=== PATIENT | male | born 1960 | race Caucasian/White ===

== ENCOUNTER 2020-09-02 20:54 | Outpatient (REF) | payer MEDICARE, SELFPAY ==
[2020-09-02 22:04] LABS: HCT 40.6 % (40.0-50.0); HGB 13.1 g/dL (13.5-17.5); MCH 33.5 pg (27.0-33.0); MCHC 32.3 % (32.0-36.0); MCV 103.8 fL (80-95); Platelet Count 221 10^3/uL (130-400); RBC 3.91 10^6/uL (4.36-5.78); RDW 13.2 % (11.8-14.1); RDW-SD 50.5 fL; WBC 4.82 10^3/uL (4.4-10.8)
[2020-09-02 22:22] LABS: ALT 27 U/L (16-63); AST 15 U/L (15-37); Albumin 3.7 g/dL (3.4-5.0); Alkaline Phosphatase 65 U/L (46-116); BUN 11 mg/dL (7-18); Bilirubin, Total 0.5 mg/dL (0.2-1.0); CREATININE 1.03 mg/dL (0.70-1.30); Calcium 9.2 mg/dL (8.5-10.1); Chloride 105 mmol/L (98-107); Glucose 88 mg/dL (74-106); Potassium 4.2 mmol/L (3.5-5.1); Sodium 139 mmol/L (136-145); Total Protein 6.4 g/dL (6.4-8.2)
[2020-09-03 23:32] LABS: Folate 13.8 ng/mL (See Note); Vitamin B12 284 pg/mL (211-911)
== END 2020-09-02 21:14 ==
LOC: NCHCN 20:54
PROVIDERS: PCP Family Medicine; Visit Provider Nurse Practitioner Community Health
DX: Z79.899 Other long term (current) drug therapy (principal); R71.8 Other abnormality of red blood cells
CPT/HCPCS: 80053; 85027; 82607; 82746; 84443

== ENCOUNTER 2020-09-18 10:54 | Outpatient (REF) | payer MEDICARE, SELFPAY ==
[2020-09-18 21:08] LABS: Abs Immature Grans 0.01 10^3/uL (0.0-0.06); Absolute Basophil Count 0.03 10^3/uL (0.0-0.2); Absolute Eosinophil Count 0.21 10^3/uL (0.0-0.7); Absolute Lymphocyte Count 1.46 10^3/uL (1.2-3.4); Absolute Monocyte Count 0.87 10^3/uL (0.1-0.8); Absolute Neutrophil Count 3.18 10^3/uL (1.2-6.7); Basophils % 0.5; Eosinophils % 3.6; HCT 42.3 % (40.0-50.0); HGB 13.5 g/dL (13.5-17.5); Immature Grans % 0.2; Lymphocytes % 25.3; MCH 33.5 pg (27.0-33.0); MCHC 31.9 % (32.0-36.0); MPV 10.2 fL (8.0-11.0); Monocytes % 15.1; Neutrophils % 55.3; Nucleated RBC 0 %; Platelet Count 252 10^3/uL (130-400); RBC 4.03 10^6/uL (4.36-5.78); RDW 12.6 % (11.8-14.1); WBC 5.76 10^3/uL (4.4-10.8)
== END 2020-09-18 11:14 ==
LOC: NCHCN 10:54
PROVIDERS: PCP Family Medicine; Visit Provider Nurse Practitioner Community Health
DX: R71.8 Other abnormality of red blood cells (principal)
CPT/HCPCS: 85025

== ENCOUNTER 2020-09-30 16:08 | Outpatient (REF) | payer MEDICARE, SELFPAY ==
[2020-09-30 22:06] LABS: HCT 43.6 % (40.0-50.0); HGB 13.8 g/dL (13.5-17.5); MCH 32.9 pg (27.0-33.0); MCHC 31.7 % (32.0-36.0); MCV 104.1 fL (80-95); MPV 10.2 fL (8.0-11.0); Platelet Count 286 10^3/uL (130-400); RBC 4.19 10^6/uL (4.36-5.78); RDW 12.3 % (11.8-14.1); RDW-SD 47.3 fL; WBC 6.64 10^3/uL (4.4-10.8)
== END 2020-09-30 16:28 ==
LOC: NCHCN 16:08
PROVIDERS: PCP Family Medicine; Visit Provider Nurse Practitioner Community Health
DX: R23.3 Spontaneous ecchymoses (principal)
CPT/HCPCS: 85027

== ENCOUNTER 2021-03-29 16:32 | Outpatient (REF) | payer OTHER, SELFPAY ==
[2021-03-29 22:24] LABS: Calculated LDL 139 mg/dL (<100); Cholesterol 224 mg/dL (<200); HDL Cholesterol 73 mg/dL (40-60); Triglyceride 62 mg/dL (<150)
== END 2021-03-29 16:33 | disposition home or self-care (01) ==
LOC: NCHCN 16:32
PROVIDERS: PCP Family Medicine; Visit Provider Nurse Practitioner Community Health
DX: E78.89 Other lipoprotein metabolism disorders (principal)
CPT/HCPCS: 80061

== ENCOUNTER 2023-05-29 17:21 | Outpatient (REF) | payer MEDICARE, SELFPAY ==
[2023-05-29 16:34] LABS: HGB 15.4 g/dL (13.5-17.5); MCH 31.4 pg (27.0-33.0); MCHC 32.1 % (32.0-36.0); MCV 98 fL (80-95); MPV 10.6 fL (8.0-11.0); Platelet Count 221 10^3/uL (130-400); RBC 4.91 10^6/uL (4.36-5.78); RDW 12.7 % (11.8-14.1); RDW-SD 45.5 fL; WBC 4.71 10^3/uL (4.4-10.8)
[2023-05-29 17:07] LABS: Hemoglobin A1C 5.4 % (<5.7)
[2023-05-29 17:24] LABS: ALT 18 U/L (16-63); AST 15 U/L (15-37); Albumin 3.8 g/dL (3.4-5.0); Alkaline Phosphatase 85 U/L (46-116); Anion Gap 6.8 mmol/L (3-11); BUN 13 mg/dL (7-18); Bilirubin, Total 0.5 mg/dL (0.2-1.0); CO2 27.2 mmol/L (21.0-32.0); Calcium 9.4 mg/dL (8.5-10.1); Calculated LDL 142 mg/dL (<100); Chloride 106 mmol/L (98-107); Cholesterol 217 mg/dL (<200); Glucose 99 mg/dL (74-106); HDL Cholesterol 60 mg/dL (40-60); Potassium 4.6 mmol/L (3.5-5.1); Sodium 140 mmol/L (136-145); TSH 1.94 uIU/mL (0.36-3.74); Total Protein 7.4 g/dL (6.4-8.2); Triglyceride 77 mg/dL (<150)
== END 2023-05-29 17:22 | disposition home or self-care (01) ==
LOC: NCHCN 17:21
PROVIDERS: PCP Family Medicine; Visit Provider Family Medicine
DX: J43.9 Emphysema, unspecified (principal); R23.3 Spontaneous ecchymoses; R03.0 Elevated blood-pressure reading, without diagnosis of hypertension
CPT/HCPCS: 80053; 80061; 85027; 83036; 84443

== ENCOUNTER 2024-12-03 17:49 | Outpatient (REF) | payer MEDICARE, SELFPAY ==
[2024-12-03 20:47] LABS: Hemoglobin A1C 5.3 % (<5.7)
[2024-12-03 20:48] LABS: ALT 25 U/L (16-63); AST 17 U/L (15-37); Albumin 3.6 g/dL (3.4-5.0); Alkaline Phosphatase 98 U/L (46-116); Anion Gap 6.9 mmol/L (3-11); BUN 12 mg/dL (7-18); Bilirubin, Total 0.38 mg/dL (0.2-1.0); CO2 28.1 mmol/L (21.0-32.0); CREATININE 1.2 mg/dL (0.70-1.30); Calcium 9.4 mg/dL (8.5-10.1); Calculated LDL 84 mg/dL (<100); Chloride 111 mmol/L (98-107); Cholesterol 165 mg/dL (<200); Estimated GFR 67.95 (mL/min/1.73m2); Glucose 100 mg/dL (74-106); HDL Cholesterol 67 mg/dL (40-60); Potassium 4.7 mmol/L (3.5-5.1); Sodium 146 mmol/L (136-145); Total Protein 6.7 g/dL (6.4-8.2); Triglyceride 71 mg/dL (<150)
== END 2024-12-03 17:50 | disposition home or self-care (01) ==
LOC: LBN 17:49
PROVIDERS: PCP Family Medicine; Visit Provider Psychiatry & Neurology Psychiatry
DX: Z79.899 Other long term (current) drug therapy (principal)
CPT/HCPCS: 80053; 80061; 83036

== ENCOUNTER 2025-08-20 15:12 | Outpatient (REF) | payer MEDICARE, SELFPAY ==
[2025-08-20 15:27] LABS: Anion Gap 9.1 mmol/L (3-11); BUN 10 mg/dL (7-18); CO2 27.9 mmol/L (21.0-32.0); Calcium 9.6 mg/dL (8.5-10.1); Chloride 105 mmol/L (98-107); Estimated GFR 74.96 (mL/min/1.73m2); Glucose 98 mg/dL (74-106); Potassium 4.5 mmol/L (3.5-5.1); Sodium 142 mmol/L (136-145)
== END 2025-08-20 15:13 | disposition home or self-care (01) ==
LOC: NCHCN 15:12
PROVIDERS: PCP Family Medicine; Visit Provider Family Medicine
DX: I10 Essential (primary) hypertension (principal)
CPT/HCPCS: 80048

== ENCOUNTER 2025-08-21 16:21 | Outpatient (REF) | payer MEDICARE, SELFPAY ==
[2025-08-21 21:37] LABS: COMMENT (LAB VIEW ONLY) 30.74 mg/dL; Microalb ug/mg Crea 13.7 ug/mg Cr
== END 2025-08-21 16:22 | disposition home or self-care (01) ==
LOC: NCHCN 16:21
PROVIDERS: PCP Family Medicine; Visit Provider Family Medicine
DX: I10 Essential (primary) hypertension (principal)
CPT/HCPCS: 82043; 82570